=== PATIENT | male | born 2005 | race Caucasian/White ===

== ENCOUNTER 2024-03-13 16:17 | Emergency (ER) | payer SELFPAY ==
[~2024-03-13] VITALS: Ht 188 cm; Wt 109.1 kg
[2024-03-13] MEDS ORDERED: fentaNYL 50 MCG/ML 2 ML VIAL IV ONE ×3 (16:30→18:15)
[2024-03-13] MEDS ORDERED: NS 1,000 ML IV ONE ×2 (16:30→21:00)
[2024-03-13 16:36] LABS: BASO % 0.2 % (0.0-2.0); EOS # 0.1 K/mm3 (0.0-0.7); EOS % 1.1 % (0.0-4.0); GRAN # 7.5 K/mm3 (1.4-6.5); GRAN % 61.3 % (42.2-75.2); HEMATOCRIT 39.6 % (36.0-47.0); HEMOGLOBIN 14.1 g/dl (12.5-16.1); LYMPH # 3.6 K/mm3 (1.2-3.4); LYMPH % 29.5 % (20.0-51.0); MEAN CELL VOLUME 86 fl (80.0-95.0); MEAN CORPUSCULAR HEMOGLOBIN 31 pg (26-32); MEAN CORPUSCULAR HGB CONC 36 g/dl (33.0-37.0); MEAN PLATELET VOLUME 9.8 fl (7.4-10.4); MONO # 0.9 K/mm3 (0.1-0.6); MONO % 7.4 % (1.7-9.3); PLATELET COUNT 308 K/mm3 (130-400); RED BLOOD COUNT 4.62 M/mm3 (4.20-5.60); REDCELL DISTRIBUTION WIDTH-CV 12.8 % (11.5-14.5)
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
[2024-03-13 17:01] LABS: ALBUMIN 4.3 g/dL (3.5-5.0); BILIRUBIN,TOTAL 0.6 mg/dL (0.2-1.2); CALCIUM 9.4 mg/dL (8.4-10.2); CREATININE, serum 1.2 mg/dL (0.72-1.25); POTASSIUM 3.7 mEq/L (3.5-4.5); TOTAL PROTEIN 7.6 g/dl (6.2-8.1)
[2024-03-13] MEDS ORDERED: NS 100 ML IV SCH (17:06)
[2024-03-13] MEDS ORDERED: Iohexol 300 - 100 ML VIAL IV ONE (17:06)
[2024-03-13 17:07] LABS: TROPONIN-I 0.017 ng/mL (0.00-0.033)
--- NOTE | 2024-03-13 17:12 | NUR ---
truck shop supervisor notified, Sarabjit Serna that patient was transferring to [facility].
[2024-03-13] MEDS ORDERED: Rocuronium 50 MG/5 ML Multi-Dose VIAL IV ONE ×3 (18:00→21:30)
[2024-03-13 18:06] VITALS: BP 150/97; PULSE 87
[2024-03-13] MEDS ORDERED: ROCURONIUM IV SCH (21:00)
== END 2024-03-13 18:06 | disposition short-term general hospital (02) ==
LOC: COL.ER 16:17
PROVIDERS: Family Medicine
DX: S52.302A Unspecified fracture of shaft of left radius, initial encounter for closed fracture (principal); S52.202A Unspecified fracture of shaft of left ulna, initial encounter for closed fracture; S52.501A Unspecified fracture of the lower end of right radius, initial encounter for closed fracture; S52.601A Unspecified fracture of lower end of right ulna, initial encounter for closed fracture; V23.49XA Other motorcycle driver injured in collision with car, pick-up truck or van in traffic accident, initial encounter; Y92.410 Unspecified street and highway as the place of occurrence of the external cause
CPT/HCPCS: J2704; J3010; J7030; Q9967